=== PATIENT | female | born 1985 | race Caucasian/White ===

== ENCOUNTER 2025-03-15 14:05 | Emergency (ER) | payer MEDICAID, SELFPAY ==
--- NOTE | ~2025-03-15 | XR_ITS ---
EXAMINATION: XR HIP, LEFT CLINICAL INFORMATION: pain after slip and fall COMPARISON: None available. TECHNIQUE: AP pelvis and two-view of the left hip. FINDINGS: Hip joint space is congruent without narrowing. There are no osteophytes. SI joint appears unremarkable. Pubic saphenous joint is unremarkable. No fracture or deformity is evident. XR/XR hip LT w [id number] IMPRESSION: Unremarkable left hip. Electronically signed by: Domenico Marquez MD 03/15/2025 04:02 PM EDT
--- NOTE | ~2025-03-15 | XR_ITS ---
EXAMINATION: XR KNEE, RIGHT CLINICAL INFORMATION: fall, pain and swelling COMPARISON: None available. TECHNIQUE: AP lateral and bilateral oblique views lower extremity joint, right knee. FINDINGS: There is no joint effusion. Intercondylar tubercles are peaked. Minimal marginal osteophyte formation is visible along the medial joint line. XR/XR knee RT 4V IMPRESSION: Minimal medial joint line osteophytes without joint space narrowing. Electronically signed by: Domeinco Marquez MD 03/15/2025 04:04 PM EDT
--- NOTE | 2025-03-15 15:08 | ED_ITS ---
HPI - General Adult General Chief complaint: Fall Stated complaint: knee pain and hip pain Time Seen by Provider: 03/15/25 16:22 Source: patient Mode of arrival: ambulatory Limitations: no limitations History of Present Illness ED Provider: HPI narrative: Patient's history of chronic knee issues status post cortisone injection of the right knee about 12 years ago was in the [employer] store yesterday and slipped on the urine of another dog, since then complaining of increased pain in the right knee and left hip able to ambulate otherwise no obvious deformity no significant swelling no head injury no loss of consciousness Related Data Previous Rx's ?Medication ?Instructions ?Recorded cyclobenzaprine 10 mg tablet 10 mg PO Q8H #20 tabs tramadol 50 mg tablet 50 mg PO Q6H PRN pain #20 ta bs 03/15/25 Allergies Allergy/AdvReac Type Severity Reaction Status Date / Time No Known Allergies (No Known Allergy Verified 03/15/25 15:12 Allergies*) Review of Systems Review of Systems: Yes all other systems are reviewed and are negative [facility] Social History Social History Smoked in Last 30 Days: Yes Use of substances other than those prescribed or required for medical reasons: Yes Substance Use Type: Marijuana Last Used Substance: Unknown Advance Directives: No Advance Directives Information Provided: Yes Patient : No Physical Exam ED Vital Signs: Vital Signs - 24 hr 03/15/25 15:09 03/15/25 15:59 03/15/25 16:43 Temperature 98.6 F 98.6 F 98.1 F Pulse Rate 69 69 84 Respiratory Rate 16 16 20 Blood Pressure 120/65 120/65 105/60 Pulse Oximetry 98 98 98 Oxygen Delivery Method Room Air Room Air 03/15/25 17:11 Temperature 97.9 F Pulse Rate 82 Respiratory Rate 16 Blood Pressure 116/65 Pulse Oximetry 99 Oxygen Delivery Method Room Air BMI result Body Mass Index 37.6 Appearance: Alert. Oriented X3. No acute distress. Eyes: PERRLA, No Nystagmus ENT: Pharynx normal. Oral Mucosa moist atraumatic normocephalic Neck: Normal inspection. Neck supple. CVS: Normal heart rate and rhythm. Pulses normal. Respiratory: No respiratory distress. Equal air entry bilateral, no wheezing/rales/rhonchi Abdomen: Soft and nontender. Bowel sounds are present, no mass palpable, no CVA tenderness Skin: Skin warm and dry. Normal skin color. Normal skin turgor. Extremities: No lower extremity edema. No calf tenderness right knee with diffuse joint line tenderness specially in the medial aspect no significant effusion noticed [place]o sign and anterior drawer sign was negative left hip with diffuse tenderness in flexion and at left greater trochanteric area Neuro: Oriented X 3. No motor deficit. No sensory deficit.No cerebellar signs , cranial nerves II-XII intact Course Course Course Narrative: This is a rapid medical exam performed by Blaze Baeza NP: Additional HPI, ROS, PE not included below will be deferred to primary provider. Patient is a 39-year-old female presenting to the ED with complaint right knee pain and swelling as well as left hip and groin area after a slip and fall yesterday. Was in [employer] and slipped on urine. Denies head strike or LOC, not anticoagulated. Plan: imaging Medications Administered Discontinued Medications Generic Name Dose Route Start Last Admin Trade Name Freq PRN Reason Stop Dose Admin Cyclobenzaprine HCl 10 mg 03/15/25 16:39 03/15/25 17:04 Cyclobenzaprine Hcl 10 Mg Tablet PO 03/15/25 16:40 10 mg ONCE ONE Administration Tramadol HCl 50 mg 03/15/25 16:39 03/15/25 17:04 Tramadol Hcl 50 Mg Tablet PO 03/15/25 16:40 50 mg ONCE ONE Administration Medical Decision Making Medical Decision Making [facility] Narrative: Patient has chronic knee pain came here for increased pain after the fall yesterday clinically patient has ligamentous injury no significant joint swelling noticed knee brace was applied patient advised to follow with Orthopedics Independent Interpretation I performed an independent interpretation of an: Plain X-Ray Interpretation: Negative in right knee and hip pelvis x-ray Radiology Impression Discussion of test interpretation with radiology: I have reviewed the radiologist's reading. Discharge Plan Discharge Clinical Impression: Contusion of knee, right, Contusion of hip Patient Disposition: Home, Self-Care Instructions: Knee Pain (ED), Hip Contusion (ED) Additional Instructions: Wear the knee immobilizer for support, use crutches Continue to take ibuprofen may take Tramadol for increased pain Flexeril for muscle relaxation Follow up with Orthopedics Prescriptions: New cyclobenzaprine 10 mg tablet 10 mg PO Q8H Qty: 20 0RF tramadol 50 mg tablet 50 mg PO Q6H PRN (Reason: pain) Qty: 20 0RF Referrals: Raúl Oswald MD [Physician, Orthopedics] Referral Note: r knee pain Stand Alone Forms: Work/School Release Interventions: ED Discharge Assessment Last Done: 03/15/25 17:11 Discharge Date/Time: 03/15/25 17:13 Print Language: Mohawk
[2025-03-15 15:09] VITALS: BP 120/65; PULSE 69; RESP 16; TEMP 37; O2SAT 98; BMI 37.6
[2025-03-15 15:59] VITALS: BP 120/65; PULSE 69; RESP 16; TEMP 37; O2SAT 98
--- NOTE | 2025-03-15 16:02 | PC.NURSE ---
Ice pack applied to R knee for comfort; +DP pulses bilaterally manually (strong); vss; awaiting xray results
[2025-03-15 16:43] VITALS: BP 105/60; PULSE 84; RESP 20; TEMP 36.7; O2SAT 98
[2025-03-15] MEDS: Cyclobenzaprine HCl 10 MG TABLET PO (17:04)
[2025-03-15] MEDS: traMADoL HCL 50 MG TABLET PO (17:04)
[2025-03-15 17:11] VITALS: BP 116/65; PULSE 82; RESP 16; TEMP 36.6; O2SAT 99
== END 2025-03-15 17:13 | disposition home or self-care (01) ==
PROVIDERS: Emergency Provider Internal Medicine
DX: S80.01XA Contusion of right knee, initial encounter (principal); S70.02XA Contusion of left hip, initial encounter; M25.552 Pain in left hip; X58.XXXA Exposure to other specified factors, initial encounter; W01.0XXA Fall on same level from slipping, tripping and stumbling without subsequent striking against object, initial encounter; Y93.9 Activity, unspecified; Y92.512 Supermarket, store or market as the place of occurrence of the external cause; Y99.8 Other external cause status
CPT/HCPCS: 73502; 73564; 99283; 99284

== ENCOUNTER → 2025-03-15 15:10 | Outpatient (BNV) | payer SELFPAY | PROVIDERS: Emergency Provider Internal Medicine; Visit Provider Radiology Diagnostic Radiology | DX: M25.861 Other specified joint disorders, right knee (principal); M25.552 Pain in left hip | CPT/HCPCS: 73502; 73564 ==